=== PATIENT | female | born 1955 | race Two or more races ===

== ENCOUNTER 2016-08-09 20:45 | Emergency (ER) | payer OTHER ==
[~2016-08-09] VITALS: Ht 152.4 cm; Wt 99.4 kg
[~2016-08-09 20:45] MED LIST: ADVIL200 M3 PO; DULCOLAX5 MG PO; HCTZ PO; LEVOTHYROXINE100 MCG; LEVOTHYROXINE100 MCG PO; LEVOTHYROXINE125 MCG PO; LISINOP PO; LISINOP/HCTZ TAB 20-; LORCET 5-325 M1 EACH PO; MIRALAX17 GM PO; PriLOSEC PO; ULTRAM50 MG PO; Vicodin,Norco 5/325 PO; ZESTORETIC 20-1 EAC1 PO
[2016-08-09 20:52] VITALS: BP 195/81
== END 2016-08-09 22:00 | disposition left against medical advice (07) ==
LOC: EME 20:45
DX: F41.9 Anxiety disorder, unspecified (principal); Z53.21 Procedure and treatment not carried out due to patient leaving prior to being seen by health care provider; I10 Essential (primary) hypertension; R42 Dizziness and giddiness; R51 Headache; F03.90 Unspecified dementia, unspecified severity, without behavioral disturbance, psychotic disturbance, mood disturbance, and anxiety
CPT/HCPCS: 93005